=== PATIENT | male | born 1950 | race Caucasian/White ===

== ENCOUNTER 2025-09-11 16:42 | Emergency (ER) | payer OTHER ==
[2025-09-11] MEDS: Lidocaine 1% with EPINEPHrine 1:100,000 20 ML MDV INFILT ONE (17:19)
[2025-09-11] MEDS: Diphtheria,Pertussis(Acell),Tetanus Vaccine 0.5 ML Syringe IM ONE (17:19)
== END 2025-09-11 18:03 | disposition home or self-care (01) ==
LOC: VM.ED 16:42
DX: S01.01XA Laceration without foreign body of scalp, initial encounter (principal); S09.90XA Unspecified injury of head, initial encounter; Z23 Encounter for immunization; W22.8XXA Striking against or struck by other objects, initial encounter
CPT/HCPCS: 12002; 70450; 90471; 90715; 99283; J2004